=== PATIENT | female | born 1945 | race Caucasian/White ===

== ENCOUNTER → 2016-06-23 | Outpatient (CLI) | payer MEDICARE, BC ==
[~2016-06-23] MED LIST: LORTAB 5/500 501 TAB PO; MULTIVITAMIN FO1 CAP PO
== END ==
LOC: MC.RAD 09:16
DX: Z12.31 Encounter for screening mammogram for malignant neoplasm of breast (principal); Z80.3 Family history of malignant neoplasm of breast

== ENCOUNTER → 2017-06-30 | Outpatient (CLI) | payer MEDICARE, BC ==
[~2017-06-30] MED LIST changes: +CALCIUM CARBON650 M2 PO; +I-VITE LUTEIN1 TAB PO; +LIPITOR 10MG10 MG PO
== END ==
LOC: MC.RAD 06-24 10:20
DX: Z12.31 Encounter for screening mammogram for malignant neoplasm of breast (principal)

== ENCOUNTER → 2018-07-03 | Outpatient (CLI) | payer MEDICARE, BC ==
[~2018-07-03] MED LIST changes: +B COMPLEX #11 TAB PO; +CEPHALEXIN500 M1 PO; +ELIQUIS 5MG PO; +PRESERVISION1 SGL PO
== END ==
LOC: MC.RAD 09:43
DX: Z12.31 Encounter for screening mammogram for malignant neoplasm of breast (principal); Z95.818 Presence of other cardiac implants and grafts

== ENCOUNTER 2018-08-09 10:43 | Observation (INO) | payer MEDICARE, BC ==
[~2018-08-09] VITALS: Ht 172.7 cm; Wt 94.7 kg
[2018-08-09 11:18] LABS: BASO % 0.2 % (0.0-2.0); EOS % 0.5 % (0-4.0); GRAN # 4.2 (1.4-6.5); GRAN % 69.3 % (42.2-75.2); HEMATOCRIT 43.4 % (37.0-47.0); HEMOGLOBIN 14.9 g/dl (12.5-16.0); LYMPH # 1.1 (1.2-3.4); LYMPH % 17.9 % (20.0-51.0); MEAN CELL VOLUME 90 fl (80.0-100.0); MEAN CORPUSCULAR HEMOGLOBIN 31 pg (27.0-31.0); MEAN CORPUSCULAR HGB CONC 34 g/dl (33.0-37.0); MEAN PLATELET VOLUME 9.3 fl (7.4-10.4); MONO # 0.7 (0.1-0.6); MONO % 11.8 % (1.7-9.3); PLATELET COUNT 292 K/mm3 (130-400); RED BLOOD COUNT 4.85 M/mm3 (4.10-5.30); REDCELL DISTRIBUTION WIDTH-CV 11.8 % (11.5-14.5)
[2018-08-09 11:28] LABS: ALANINE AMINOTRANSFERASE 13 U/L (9-52); ALBUMIN 4.3 gm/dL (3.5-5.0); ALKALINE PHOSPHATASE 82 U/L (50-136); ANION GAP 11 mmol/L (7-16); AST,SGOT 19 U/L (15-37); BILIRUBIN,TOTAL 0.7 mg/dL (0.0-1.0); BLOOD UREA NITROGEN 16 mg/dL (7-17); CALCIUM 9.4 mg/dL (8.4-10.2); CARBON DIOXIDE 27 mmol/L (22-30); CHLORIDE 103 mmol/L (98-107); CREATININE, serum 0.83 (0.52-1.25); GLUCOSE 109 mg/dL (74-106); LIPASE 70 U/L (23-300); POTASSIUM 4.1 mmol/L (3.4-5.0); SODIUM 141 mmol/L (137-145); TOTAL PROTEIN 7.8 gm/dL (6.4-8.2)
[2018-08-09 11:42] LABS: TROPONIN-I < 0.012 ng/mL (0.000-0.035)
--- NOTE | 2018-08-09 13:15 | NUR ---
Received pt to floor from ED. Pt denies any pain at this time. Oriented pt to room, pt denies any needs at this time.
[2018-08-09] MEDS ORDERED: MULTAQ400 MG PO (16:20)
--- NOTE | 2018-08-09 16:30 | NUR ---
Pt lying in bed, still denying any chest or shoulder pain. Breathing even and unlabored, breath sounds clear. Completed initial assessment. Med rec reviewed and completed. Pt denies any needs at this time.
[2018-08-09 16:44] VITALS: BP 108/58; PULSE 53; TEMP 97.8
--- NOTE | 2018-08-09 19:31 | NUR ---
Hand off report given to Gaby SANDHU. Pt lying in bed, denies any pain.
[2018-08-09 20:59] VITALS: BP 128/63; PULSE 62; TEMP 97.6
--- NOTE | 2018-08-09 21:04 | NUR ---
PT IN BED WITH HOB ELEVATED TO 45 DEGREE ANGLE. PT IS PLEASANT AND COOPERATIVE. PT DENIES PAIN OR DISCOMFORT. NO NEEDS AT THIS TIME, CALL LIGHT WITHIN REACH.
[2018-08-09 23:26] VITALS: BP 110/58; PULSE 59; TEMP 98.1
[2018-08-10] VITALS (8 sets, daily range): BP systolic 97–134; BP diastolic 34–72; PULSE 55–88; TEMP 96.9–98.2
--- NOTE | 2018-08-10 01:19 | NUR ---
PT RESTING/SLEEPING IN BED WITH CPAP ON. PT DID GET UP TO GO TO THE BATHROOM AND THEN BACK TO SLEEP. PT IS AWARE THAT SHE IS NPO AT THIS TIME. NO NEEDS AND NO C/O PAIN OR DISCOMFORT, CALL LIGHT WITHIN REACH.
--- NOTE | 2018-08-10 06:06 | NUR ---
UNEVENTFUL NIGHT, PT SLEEPING/RESTING DURING NIGHT. PT DID AWAKEN TO READ HER TORI, BUT DID NOT CALL FOR ANY NEEDS, CALL LIGHT WITHIN REACH.
[2018-08-10 06:31] LABS: BASO % 0.2 % (0.0-2.0); EOS # 0.1 (0.0-0.7); EOS % 1.4 % (0-4.0); GRAN # 3.2 (1.4-6.5); GRAN % 61.5 % (42.2-75.2); HEMATOCRIT 44.3 % (37.0-47.0); LYMPH # 1.3 (1.2-3.4); MEAN CELL VOLUME 91 fl (80.0-100.0); MEAN CORPUSCULAR HEMOGLOBIN 31 pg (27.0-31.0); MEAN CORPUSCULAR HGB CONC 34 g/dl (33.0-37.0); MEAN PLATELET VOLUME 9.7 fl (7.4-10.4); MONO # 0.6 (0.1-0.6); MONO % 11.7 % (1.7-9.3); PLATELET COUNT 304 K/mm3 (130-400); RED BLOOD COUNT 4.88 M/mm3 (4.10-5.30); REDCELL DISTRIBUTION WIDTH-CV 11.9 % (11.5-14.5)
[2018-08-10 06:44] LABS: ANION GAP 11 mmol/L (7-16); BLOOD UREA NITROGEN 14 mg/dL (7-17); CALCIUM 9.1 mg/dL (8.4-10.2); CARBON DIOXIDE 27 mmol/L (22-30); CHLORIDE 104 mmol/L (98-107); CREATININE, serum 0.81 (0.52-1.25); GLUCOSE 108 mg/dL (74-106); POTASSIUM 4.1 mmol/L (3.4-5.0); SODIUM 142 mmol/L (137-145)
[2018-08-10 06:53] LABS: TROPONIN-I < 0.012 ng/mL (0.000-0.035)
--- NOTE | 2018-08-10 08:34 | NUR ---
Pt to nuc. med for lexiscan.
--- NOTE | 2018-08-10 10:00 | NUR ---
Pt is awake and A/Ox4, sitting up in bed. She denies pain at this time. Saline lock to left AC. Pt is up as tolerated in room. Updated on plan of care by Dr. Mariscal, expressed understanding. Denies any other needs.
--- NOTE | 2018-08-10 10:33 | NUR ---
SW student attended clinical rounding and met with the patient to discuss discharge planning. The patient lives in [place] with her , Van. The patient reports independence with ADLs and has no DME. The patients PCP is Dr. Nandini Alvarado and she gets her medications from [facility] pharmacy. The patient reports no difficulties obtaining her medications. The patient does not have DPOA-HC in EMR but reports she has one completed and will have her bring up a copy to the hospital when he can. The patient plans to return home upon discharge with her . No additional needs at this time.
--- NOTE | 2018-08-10 11:33 | NUR ---
First visit from the clinical orthoptist. No needs right now.
--- NOTE | 2018-08-10 16:15 | NUR ---
Pt was discharged home from hospital. All discharge instructions and paperwork weas reviewed with pt who expressed understanding and had no questions. Saline lock removed, catheter tip intact. Pt was escorted out by staff.
== END 2018-08-10 16:16 | disposition home or self-care (01) ==
LOC: COL.ER 10:43 → MEDICAL 13:43
PROVIDERS: Nurse Practitioner Primary Care; Physician Assistant; ADMIT Family Medicine
DX: M25.512 Pain in left shoulder (principal); M54.2 Cervicalgia; I48.0 Paroxysmal atrial fibrillation; Z79.01 Long term (current) use of anticoagulants; E78.5 Hyperlipidemia, unspecified; G47.33 Obstructive sleep apnea (adult) (pediatric); Z82.49 Family history of ischemic heart disease and other diseases of the circulatory system; Z80.9 Family history of malignant neoplasm, unspecified; Z79.899 Other long term (current) drug therapy
CPT/HCPCS: A9500; G0378; J2270; J2785

== ENCOUNTER 2018-11-16 10:30 | Outpatient (RCR) | payer MEDICARE, BC ==
[2018-11-14 11:06] VITALS: BP 107/58; PULSE 56; TEMP 97.4
[~2018-11-16] VITALS: Ht 172.7 cm; Wt 91.4 kg
[2018-11-16 10:28] VITALS: BP 131/51; PULSE 58; TEMP 97.5
[~2018-11-16 10:30] MED LIST changes: +D3-5050000 IU PO; +MULTAQ400 MG PO
== END 2018-11-16 10:48 | disposition home or self-care (01) ==
LOC: EUO 10:30
DX: M81.0 Age-related osteoporosis without current pathological fracture (principal)
CPT/HCPCS: J0897

== ENCOUNTER → 2019-09-13 | Outpatient (CLI) | payer MEDICARE, BC | LOC: MC.RAD 07:54 | DX: Z12.31 Encounter for screening mammogram for malignant neoplasm of breast (principal) ==

== ENCOUNTER → 2020-09-18 | Outpatient (CLI) | payer MEDICARE, BC | LOC: MC.RAD 07:30 | DX: Z12.31 Encounter for screening mammogram for malignant neoplasm of breast (principal) ==

== ENCOUNTER 2021-02-16 15:28 | Inpatient (IN) | payer MEDICARE, BC ==
[~2021-02-16] VITALS: Ht 172.7 cm; Wt 90.3 kg
[2021-04-15] VITALS (10 sets, daily range): BP systolic 111–132; BP diastolic 47–74; PULSE 50–68; TEMP 97.7–98.6
[2021-04-15] MEDS ORDERED: COZAAR 50MG50 MG/TAB PO (07:18)
[2021-04-15] MEDS ORDERED: NATURAL IRON65 MG PO (07:19)
[2021-04-15] MEDS ORDERED: VITAMIN C500 MG PO (07:19)
[2021-04-15] MEDS ORDERED: FOLIC ACID0.4 MG PO (07:19)
[2021-04-15] MEDS ORDERED: MASON NATURAL2000 IU PO (07:20)
[2021-04-15] MEDS ORDERED: B COMPLEX #11 TA1 PO (07:20)
[2021-04-15] MEDS ORDERED: PRESERVISION1 SGL PO (07:21)
[2021-04-15] MEDS ORDERED: COLLAGEN PLUS PO (07:21)
[2021-04-15] MEDS ORDERED: MULTIVITAMIN FO1 CAP PO (07:21)
[2021-04-15] MEDS ORDERED: B COMPLEX & B121 TAB PO (07:22)
[2021-04-15] MEDS ORDERED: PROLIA60 MG/ML SQ (08:01)
--- NOTE | 2021-04-15 13:41 | NUR ---
Pt doing well up to this point. She is starting to be able to move her legs some, continues to state that she is not having any pain. Scheduled medications given and lunch has been ordered. Pt tolerating liquids and applesauce
--- NOTE | 2021-04-15 16:00 | NUR ---
Pt continues to do well. Pain is still tolerable, educated on pain management. Assisted pt to the restroom. She did very well with standby assist, very little increase of pain with movement. Pt voided with no difficulty. Pt has tolerated a general diet, no complaints of nausea. Fresh ice pack applied to her left knee. Fluids INT'd. No other needs, call light within reach
--- NOTE | 2021-04-15 18:39 | NUR ---
Pts pain up to a 6/10 at this time. She does not feel the Ultram helped at all. PRN roxicodone given.
--- NOTE | 2021-04-15 19:10 | NUR ---
RECEIVED CHANGE OF SHIFT REPORT FROM DAY SHIFT RN.
[2021-04-16] VITALS: BP 126/55; PULSE 80; TEMP 98.1
[2021-04-16 03:07] VITALS: BP 126/53; PULSE 78; TEMP 98
[2021-04-16 06:14] LABS: HEMOGLOBIN 12.6 g/dl (12.5-16.0)
[2021-04-16 06:17] LABS: HEMATOCRIT 36.2 % (37.0-47.0)
--- NOTE | 2021-04-16 07:22 | NUR ---
CHANGE OF SHIFT REPORT GIVEN TO DAY SHIFT RNPRATEEK.
--- NOTE | 2021-04-16 08:30 | NUR ---
Pt doing well this morning. She is sitting up in the chair. Dressing changed to an aquacell. Informed her that therapy would be by around 0900 to work with her. Pt may be going home this afternoon. Informed her that therapy would work with her on stairs and showering prior to leaving. Pt is getting up with standby assist. Pain is being well managed with oral pain medication
[2021-04-16 08:54] VITALS: BP 124/64; PULSE 72; TEMP 97.9
--- NOTE | 2021-04-16 10:32 | NUR ---
Initial visit; Patient thanked Cable Maker for looking in on her and offering comfort and prayer. Cable Maker offered God's blessings and will keep patient in her prayers.
[2021-04-16 11:52] VITALS: BP 124/55; PULSE 75; TEMP 98.6
--- NOTE | 2021-04-16 14:23 | NUR ---
Pt has done well today with therapy and pain well controlled with oral pain management, pt hoping to go home
[2021-04-16] MEDS ORDERED: ROXICODONE 55 MG/TAB PO (14:27)
[2021-04-16] MEDS ORDERED: SENOKOT S 50 MG1 TAB PO (14:28)
[2021-04-16] MEDS ORDERED: ULTRAM 50MG TAB50 MG PO (14:28)
--- NOTE | 2021-04-16 15:00 | NUR ---
Reviewed discharge instructions with pt to include prescription and follow up appointment. Pt has called her ride. Informed her to notify nursing when her ride does arrive.
--- NOTE | 2021-04-16 15:45 | NUR ---
Pt escorted out at this time
== END 2021-04-16 15:45 | disposition home or self-care (01) | DRG 470 ==
LOC: INPTSU 04-15 06:53 → SURG 04-15 06:53 → INPTSU 04-15 12:08 → SURG 04-15 12:30
PROVIDERS: ADMIT Orthopaedic Surgery
PROC: 0SRD0J9 Replacement of Left Knee Joint with Synthetic Substitute, Cemented, Open Approach (ICD-10-PCS; principal; 2021-04-15 10:20)
DX: M17.12 Unilateral primary osteoarthritis, left knee (principal); I48.91 Unspecified atrial fibrillation; I10 Essential (primary) hypertension; G47.33 Obstructive sleep apnea (adult) (pediatric); G62.9 Polyneuropathy, unspecified; Z23 Encounter for immunization
CPT/HCPCS: A9284; C1713; C1776; J0690; J2250; J2704; J3010; J7120

== ENCOUNTER → 2021-09-21 | Outpatient (CLI) | payer MEDICARE, BC ==
[~2021-09-21] MED LIST changes: +B COMPLEX #11 TA1 PO; +B COMPLEX & B121 TAB PO; +COLLAGEN PLUS PO; +COZAAR 50MG50 MG/TAB PO; +FOLIC ACID0.4 MG PO; +MASON NATURAL2000 IU PO; +NATURAL IRON65 MG PO; +PROLIA60 MG/ML SQ; +ROXICODONE 55 MG/TAB PO; +SENOKOT S 50 MG1 TAB PO; +ULTRAM 50MG TAB50 MG PO; +VITAMIN C500 MG PO
== END ==
LOC: MC.RAD 09:29
DX: Z12.31 Encounter for screening mammogram for malignant neoplasm of breast (principal)

== ENCOUNTER → 2023-07-29 | Outpatient (CLI) | payer MEDICARE, BC ==
[~2023-07-29] VITALS: Ht 172.7 cm; Wt 95.0 kg
[~2023-07-29] MED LIST changes: +Denosumab 60 MG/ML SYRINGE SQ ONE; +LIPITOR20 MG PO; +PROTONIX 40MG T40 MG PO; +TUMS500 MG PO; +TYLENOL 325MG325 MG PO
[2023-07-29 13:11] VITALS: BP 109/70; PULSE 64; TEMP 98.2
== END ==
LOC: EUO 12:56
DX: M81.0 Age-related osteoporosis without current pathological fracture (principal)
CPT/HCPCS: J0897

== ENCOUNTER → 2023-09-26 | Outpatient (CLI) | payer MEDICARE, BC ==
[~2023-09-26] MED LIST changes: -Denosumab 60 MG/ML SYRINGE SQ ONE
== END ==
LOC: MC.RAD 08:20
DX: Z12.31 Encounter for screening mammogram for malignant neoplasm of breast (principal)

== ENCOUNTER 2024-01-30 15:46 | Outpatient (CLI) | payer MEDICARE, BC ==
[~2024-01-30] VITALS: Ht 172.7 cm; Wt 98.8 kg
[2024-01-30] MEDS ORDERED: Denosumab 60 MG/ML SYRINGE SQ ONE (16:00)
[2024-01-30 16:04] VITALS: BP 111/71; PULSE 61; TEMP 98.5
[2024-01-30] MEDS ORDERED: IMODIUM 2MG CAPS2 MG PO (16:11)
== END 2024-01-30 16:13 | disposition home or self-care (01) ==
LOC: EUO 15:46
DX: M81.0 Age-related osteoporosis without current pathological fracture (principal)
CPT/HCPCS: J0897